=== PATIENT | female | born 1945 | race Caucasian/White ===

== ENCOUNTER 2017-10-16 07:33 | Emergency (ER) | payer MEDICARE, OTHER | END 2017-10-16 08:44 | disposition home or self-care (01) | LOC: M ED 07:33 | DX: L03.114 Cellulitis of left upper limb (principal); Z85.828 Personal history of other malignant neoplasm of skin; Z79.899 Other long term (current) drug therapy; Z88.0 Allergy status to penicillin | CPT/HCPCS: 99282 ==

== ENCOUNTER → 2019-02-07 | Outpatient (REF) | payer MEDICARE, OTHER ==
[~2019-02-07] MED LIST: KEFL500C17 PO; VITA100067 PO
== END ==
LOC: M LABDRAWC 16:05
PROVIDERS: ATTEND Family Medicine
DX: E83.52 Hypercalcemia (principal)

== ENCOUNTER → 2019-12-08 | Outpatient (REF) | payer MEDICARE, OTHER ==
[~2019-12-08] MED LIST changes: +MELO15TA28; +TYML3120
== END ==
LOC: M LAB REF 11:49
PROVIDERS: ATTEND Dermatology
DX: L57.0 Actinic keratosis (principal)
CPT/HCPCS: 11102; 17000; 17003; 88305; G0463

== ENCOUNTER 2020-02-06 08:00 | Emergency (ER) | payer MEDICARE, OTHER ==
[~2020-02-06] VITALS: Ht 170.2 cm; Wt 51.0 kg
[~2020-02-06 08:00] MED LIST changes: -MELO15TA28; -TYML3120
[2020-02-06] MEDS ORDERED: TYML3120 (08:11)
[2020-02-06] MEDS ORDERED: MELO15TA28 (08:11)
[2020-02-06] MEDS ORDERED: ISOVUE-370 76% 100ML VIAL As Ordered ONE (09:13)
--- NOTE | 2020-02-06 10:16 | REPVR ---
PROCEDURE INFORMATION: Exam: CT Angiography Chest With Contrast Exam date and time: 02/06/2020 9:15 AM Age: 74 years old Clinical indication: Chest pain; Additional info: R/O pe TECHNIQUE: Imaging protocol: Computed tomographic angiography of the chest with intravenous contrast. 3D rendering (Not supervised by radiologist): MIP and/or 3D reconstructed images were created by the technologist. Radiation optimization: All CT scans at this facility use at least one of these dose optimization techniques: automated exposure control; mA and/or kV adjustment per patient size (includes targeted exams where dose is matched to clinical indication); or iterative reconstruction. Contrast material: ISOVUE 370; Contrast volume: 75 ml; Contrast route: INTRAVENOUS (IV); COMPARISON: No relevant prior studies available. FINDINGS: Pulmonary arteries: Normal. No pulmonary emboli. Aorta: Mild atherosclerotic change of the thoracic aorta. Lungs: Subpleural scarring in the lung apices. Noncalcified 3 mm right upper lobe pulmonary nodule (series 402, image 12). Noncalcified 5 mm left lower lobe pulmonary nodule (series 402, image 67). Calcified left upper lobe granuloma. Pleural space: Unremarkable. No pneumothorax. No pleural effusion. Heart: Unremarkable. No cardiomegaly. No pericardial effusion. Lymph nodes: Unremarkable. No enlarged lymph nodes. Kidneys and ureters: Apparent small nonobstructing right renal calyceal calculus, incompletely imaged. Bones/joints: Mild degenerative change of the spine. Soft tissues: Unremarkable. IMPRESSION: 1. No evidence of pulmonary embolism. 2. Noncalcified 3 mm and 5 mm pulmonary nodules. For patients at low risk (minimal or absent history of smoking and of other known risk factors), no routine follow-up is indicated. For patients at high risk (history of smoking or of other known risk factors), consider optional CT Chest at 12 months. (Reference: Berry) REFERENCES: Berry H, et al. Guidelines for Management of Incidental Pulmonary Nodules Detected on CT Images: From the Fleischner Society 2017. Radiology. 2017;284(1):228-243. Electronically signed by: Kathryn Manning On 02/06/2020 10:16:36 AM
[2020-02-06 10:47] VITALS: BP 125/65
--- NOTE | 2020-02-07 08:25 | ECGEPIP ---
[facility] - ED Test Date: 2020-02-06 Pat Name: LUKE CORTEZ Department: Room: - Gender: Female Hired Help: FLORY : 1945 Requested By: Ingris Méndez Order Number: [id number] Reading MD: Ingris Méndez Measurements Intervals Coats Rate: 62 P: 56 MO: 164 QRS: 87 QRSD: 94 T: 8 QT: 406 QTc: 414 Interpretive Statements SINUS RHYTHM NO PRIOR Electronically Signed on 02-07-2020 8:24:43 EDT by Ingris Méndez
--- NOTE | 2020-02-07 12:34 | ED PDOC ---
Post-Departure Follow-Up [facility]ta chest faxed formal report to geetha arceo for Beryl Jacobsen MD Feb 07, 2020 12:34
== END 2020-02-06 10:48 | disposition home or self-care (01) ==
LOC: M ED 08:00
DX: R07.9 Chest pain, unspecified (principal); R91.8 Other nonspecific abnormal finding of lung field; M81.0 Age-related osteoporosis without current pathological fracture; Z87.442 Personal history of urinary calculi; Z85.828 Personal history of other malignant neoplasm of skin; Z82.49 Family history of ischemic heart disease and other diseases of the circulatory system; Z79.899 Other long term (current) drug therapy; Z88.0 Allergy status to penicillin
CPT/HCPCS: 71275; 80047; 84484; 93005; 99284; Q9967

== ENCOUNTER → 2020-12-16 | Outpatient (REF) | payer MEDICARE, OTHER ==
[~2020-12-16] MED LIST changes: +MELO15TA28; +TYML3120
== END ==
LOC: M LAB REF 18:46
PROVIDERS: ATTEND Physician Assistant
DX: L57.0 Actinic keratosis (principal)
CPT/HCPCS: 11102; 88305; G0463

== ENCOUNTER → 2023-12-15 | Outpatient (REF) | payer MEDICARE, OTHER | LOC: M SFHCDERM 17:51 | PROVIDERS: ATTEND Physician Assistant | DX: L57.8 Other skin changes due to chronic exposure to nonionizing radiation (principal) ==